=== PATIENT | male | born 1960 | race Two or more races ===

== ENCOUNTER 2021-01-05 04:30 | Day surgery (SDC) | payer OTHER ==
[2021-01-04 08:29] VITALS: BMI 22.6
[2021-01-05 09:07] VITALS: TEMP 97
[2021-01-05 10:31] VITALS: BP 118/78; PULSE 60
== END 2021-01-05 09:55 | disposition home or self-care (01) ==
LOC: JASU-ENDO 04:30
PROVIDERS: ATTEND Internal Medicine Gastroenterology
PROC: 0DJD8ZZ Inspection of Lower Intestinal Tract, Via Natural or Artificial Opening Endoscopic (ICD-10-PCS; principal; 2021-01-05 08:45)
DX: Z12.11 Encounter for screening for malignant neoplasm of colon (principal); K64.8 Other hemorrhoids